=== PATIENT | female | born 1995 | race Caucasian/White ===

== ENCOUNTER 2023-01-27 13:08 | Emergency (ER) | payer MEDICAID ==
[~2023-01-27] VITALS: Ht 139.7 cm; Wt 90.3 kg
[2023-01-27 13:19] VITALS: BP 166/102; PULSE 81; RESP 20; TEMP 97; O2SAT 100
--- NOTE | 2023-01-27 14:32 | NUR ---
Patient discharged with v/s stable. Written and verbal after care instructions given and explained. Patient verbalized understanding. Ambulatory with steady gait. All questions addressed prior to discharge. Advised to follow up with PMD.
== END 2023-01-27 14:32 | disposition home or self-care (01) ==
LOC: MED 13:08
DX: N93.9 Abnormal uterine and vaginal bleeding, unspecified (principal); R03.0 Elevated blood-pressure reading, without diagnosis of hypertension
CPT/HCPCS: 81002; 81025; 99282